=== PATIENT | female | born 1950 | race Caucasian/White ===

== ENCOUNTER 2017-01-06 16:47 | Emergency (ER) | payer MEDICARE, OTHER ==
[~2017-01-06] VITALS: Ht 165.1 cm; Wt 92.7 kg
[~2017-01-06 16:47] MED LIST: ASPI81TA3 PO; ATOR40TA69 PO; LEVO750T9 PO; LISI-571 PO; METO-272 PO; RIVA10TA PO; TOLT2CAP8; ZOLP5TAB6
[2017-01-06 16:51] VITALS: BP 209/96; PULSE 76; RESP 16; O2SAT 99
--- NOTE | 2017-01-06 17:26 | ED.REPORT ---
HPI-Chest Pain 40 and Over Date of Service Jan 06, 2017 ED Provider: Dr. Smith Pt is a 60 y/o female w/ a hx of HTN, hypothyroid, hyperlipidemia, presenting to the ED c/o intermittent left lateral CP onset 1 day ago. Her CP is exacerbated with bending and relieved by applying pressure to the left chest wall. It is not exacerbated by coughing. She was admitted to the hospital October 16 for 4 days for "sepsis, pneumonia, CHF, and a-fib". Since being discharged, she has been experiencing these same intermittent "twinges" of pain about her left lateral chest. Pt denies SOB, diaphoresis, nausea, vomiting, fever, chills, cough. She has no history of CAD, IN, PE, or DVT. Pt is not anticoagulated. Nursing Notes Stated Complaint: CHEST PAIN Chief Complaint: Chest Pain Nursing Notes Reviewed: Yes Allergies: Coded Allergies: No Known Allergies (Unverified , 10/16/16) Scheduled Aspirin Chew (Aspirin Chew) 81 Mg Chew 81 MG PO DAILY Atorvastatin Calcium (Atorvastatin Calcium) 40 Mg Tablet 40 MG PO HS Levofloxacin (Levaquin) 750 Mg Tablet 750 MG PO DAILY Lisinopril (Lisinopril) 5 Mg Tablet 2.5 MG PO DAILY Metoprolol Succinate ER (Metoprolol Succinate ER) 50 Mg Tab.er.24h 50 MG PO BID Rivaroxaban (Xarelto) 10 Mg Tablet 20 MG PO DAILY@17 Miscellaneous Medications Tolterodine Tartrate ER (Tolterodine Tartrate ER) 2 Mg Capsule Zolpidem (Zolpidem) 5 Mg Tablet General Time Seen by MD: 17:25 Chief Complaint Chest pain Hx Obtained From: Patient Arrived By: Walk-in Sudden in Onset?: No Onset Occurred: 1 day ago Symptom Duration: Intermittent Location: : Chest left Quality: Painful Radiation: : Does not radiate Severity: Current: Moderate Severity: Maximum: Moderate Exacerbated by: Movement Past Medical History Past Medical History Hypertension Hyperlipidemia Hx of sepsis with pneumonia, CHF, and a-fib Past Surgical History None reported Smoking History Unknown if Ever Smoker Ambulatory Status Independent Review of Systems Constitutional: Denies: Chills, Fever Respiratory: Denies: Non-productive cough, Shortness of breath Cardiovascular: Reports: Chest pain, Denies: Dyspnea on exertion, Edema GI: Denies: Abdominal pain, Diarrhea, Nausea, Vomiting Musculoskeletal: Denies: Extremity pain, Extremity swelling Skin: Denies Bruising, Denies Diaphoresis Complete sys rev & neg: except as marked. Physical Exam Initial Vital Signs Vital Signs (First) Date Time Temp Pulse Resp B/P Pulse Ox O2 Delivery O2 Flow Rate FiO2 01/06/17 16:51 36.9 76 16 209/96 99 Room Air Initial VS: Reviewed, Vital signs abnormal Head / Eyes: Atraumatic, Normocephalic, PERRL ENT: Mucous membranes moist, Conjunctiva normal, No scleral icterus Neck: Supple, Full range of motion Extremities: Vascular intact, Neuro intact, No swelling, No tenderness Skin: Warm, Dry, No cyanosis Neurologic: Alert, Oriented, Nonfocal Psychiatric: Mood/affect normal, Behavior normal, Normal thought content General/Constitutional: Awake, Alert, No acute distress, Cooperative, Not toxic appearing Respiratory / Chest: Atraumatic, Breath sounds NL, Breath sounds = bilat, No respiratory distress, No rales, No rhonchi, No wheezing, No retractions, No stridor, No chest wall deformity, No crepitus Reproducible tenderness left anterolateral chest wall Relief of CP with raising left arm above head Cardiovascular: Heart rate NL, Regular rhythm, Heart sounds NL, No gallop, No murmurs, No rubs, Cap refill not delayed, Peripheral circulation NL Abdomen: Atraumatic, Soft, Non-tender, No guarding, No rebound, No distention, No palpable mass Lower Extremity / Pelvis / MS: Atraumatic, Full range of motion, Non-tender, No erythema, No deformity, Neurologic intact, Vascular intact, No edema Interpretation & Diagnostics Lab Results Interpretation Result Diagram: 01/06/17 18001/06/17 180 Test 01/06/17 18:02 01/06/17 18:03 White Blood Count 8.8th/mm3 (3.8-10.1) Red Blood Count 5.08mil/mm3 (3.90-5.20) Hemoglobin 14.5g/dL (12.0-15.6) Hematocrit 44.7% (35.0-46.0) Mean Corpuscular Volume 88.0fL (81-100) Mean Corpuscular Hemoglobin 28.5pg (27.0-35.0) Mean Corpuscular Hemoglobin Concent 32.4% (32.0-37.0) Red Cell Distribution Width 13.7% (12.3-15.4) Platelet Count 211bil/L (150-400) Neutrophils (%) (Auto) 52.3% (40-74) Lymphocytes (%) (Auto) 36.5% (14-46) Monocytes (%) (Auto) 6.9% (4-12) Eosinophils (%) (Auto) 3.5% (0-5) Basophils (%) (Auto) 0.6% (0-3) Sodium Level 140mEq/L (134-144) Potassium Level 4.3mEq/L (3.5-5.2) Chloride Level 101mEq/L (97-108) Carbon Dioxide Level 22mmol/L (18-29) Blood Urea Nitrogen 23mg/dL (8-27) Creatinine 0.93mg/dL (0.57-1.00) Estimat Glomerular Filtration Rate 87mL/min (>59) Glucose Level 91mg/dL (60-99) Calcium Level 9.0mg/dL (8.5-10.1) Total Bilirubin 0.4mg/dL (0.0-1.2) Aspartate Amino Transf (AST/SGOT) 22U/L (0-50) Alanine Aminotransferase (ALT/SGPT) 20U/L (0-32) Alkaline Phosphatase 57U/L (25-165) Troponin T < 0.010ug/L (0.0-0.011) Pro-B-Type Natriuretic Peptide 41.89pg/mL (0-301) Total Protein 7.6g/dL (6.4-8.4) Albumin 4.7g/dL (3.4-5.0) Hold [place] Top Tube Received (Received) ECG Interpretation ECG Interpretation: Sinus rhythm rate [address] elevation of less than 1 mm in V1 and V2 otherwise no acute changes Time: 18:28 Interpreted by: ED physician Normal ECG Interpretation: No acute ischemic changes X-Ray Chest Interpretation View: Portable, AP & lat Interpretation / Wet Read by: Wet read ED physician, Interpret - Radiologist NL X-Ray Chest Findings: No infiltrate, No acute disease Re-Eval/Medical Decision Med Decision/Clinical Course Pt is a 60 y/o female w/ a hx of HTN, hypothyroid, hyperlipidemia, presenting to the ED c/o intermittent left lateral CP onset 1 day ago. Her CP is exacerbated with bending and relieved by applying pressure to the left chest wall. It is not exacerbated by coughing. Emergency Department the patient is afebrile with stable vital signs and examination as above. Of note her chest wall pain is easily reproducible with palpation, bending and twisting. CXR: Obtained, reviewed and interpreted by myself shows no evidence of acute infiltrates, effusions or pneumothorax. Cardiac and mediastinal silhouette normal. No bony or soft tissue abnormalities. Labs notable as below: CBC: unremarkable CMP: unremarkable Troponin: negative I am at this time I am convinced that the patient's presentation is reflective of acute coronary syndrome. Initial screening EKG and troponin are reassuring. Patient is without tachycardia, tachypnea, pleuritic symptoms, physical exam findings suggestive of DVT or recent major pulmonary embolism risk factors. I do not feel that workup for pulmonary embolus is indicated at this time. Given duration of patient's symptoms in setting of negative troponin I have at this time relatively reassured against acute coronary syndrome. Discussed this with the patient that she does not desire admission or further workup for acute coronary syndrome. Chest x-ray demonstrated no evidence of pneumonia or pneumothorax. Overall presentation was consistent with musculoskeletal etiology. Patient will use Tylenol/ibuprofen and apply ice packs. Follow-up and return precautions were reviewed in detail and she was discharged in good condition. Time of Eval: 19:51 Re-Evaluation/Progress Note: Pt rechecked. Informed pt of plan for treatment. Pt understands and agrees with plan for treatment. F/U instructions and RTER warnings given. All questions addressed. Counseled Regarding: Diagnosis, Lab results, Need for follow-up, When/why to return to ED Discharge & Departure Primary Impression: Musculoskeletal chest pain Disposition: Home Discharge Condition All VS Reviewed: Yes Condition: Stable Patient Instructions: Chest Pain (ED) Additional Instructions: Thank you for seeking care at the emergency room. It is difficult for us to make definitive diagnoses in the ED but we believe that you are experiencing chest pain related to a muscle strain. Our primary goal today in the ED was to evaluate you for any life-threatening conditions. Your evaluation was reassuring. There is no sign of heart attack today. Your labs, EKG, and chest x-ray was normal. Take Ibuprofen as needed for pain. You should follow-up with your primary doctor in the next week. Please discuss today's findings. 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 You should return to the ED immediately if you develop worsening or persistent chest pain, fevers, vomiting, cough, shortness of breath, chest pain, lightheadedness, weakness or any other concerning signs or symptoms. Thank you for letting us partake in your care today. Referrals: [facility] Scribe Attestation Portions of this note were transcribed by Donte Headley. I, Dr. Smith personally performed the history, physical exam and medical decision-making; I reviewed and confirmed the accuracy of the information in the transcribed note. Signed by Marques Sher, 01/06/17 - 1899 Anthony Smith MD Jan 06, 2017 17:25 DONTE HEADLEY Jan 06, 2017 18:29
[2017-01-06 18:07] LABS: BASOPHILS % (AUTO) 0.6 % (0-3); EOSINOPHILS % (AUTO) 3.5 % (0-5); MONOCYTES % (AUTO) 6.9 % (4-12); Mean Corpuscular Hemoglobin 28.5 pg (27.0-35.0); NEUTROPHILS % (AUTO) 52.3 % (40-74); Platelet Count 211 bil/L (150-400)
[2017-01-06 18:21] VITALS: BP 178/76; PULSE 68; RESP 19; O2SAT 100
[2017-01-06 18:35] LABS: TROPONIN T < 0.010 ug/L (0.0-0.011)
[2017-01-06 20:05] VITALS: BP 161/87; PULSE 70; RESP 15; O2SAT 100
--- NOTE | 2017-01-19 14:46 | DRSVH ---
PROCEDURE: X-RAY CHEST, TWO VIEWS ([id number]) INDICATIONS: chest pain TECHNIQUE: 2 views of the chest were acquired. COMPARISON: [facility], CR, XR CHEST 2VW, 11/04/2016, 15:45. FINDINGS: Surgical changes and devices: classroom monitor leads are seen over the chest. Lungs and pleura: No pleural effusions or pneumothorax. Lungs are clear. Mediastinum: Mediastinal contours are normal. Heart size is normal. Bones and chest wall: No suspicious bony abnormalities. Soft tissues appear unremarkable. IMPRESSION: No acute or active disease is seen in the two-view chest. Cause of sharp left-sided chest pain is not identified. Dictated by: Jericho Tate M.D. on 01/06/2017 at 18:02 Approved by: Jericho Tate M.D. on 01/06/2017 at 18:03
== END 2017-01-06 20:06 | disposition home or self-care (01) ==
LOC: EDUNIT# 16:47 → SED 16:47
DX: R07.89 Other chest pain (principal); I10 Essential (primary) hypertension; E03.9 Hypothyroidism, unspecified; E78.5 Hyperlipidemia, unspecified; Z79.82 Long term (current) use of aspirin